=== PATIENT | female | born 1940 | race Caucasian/White ===

== ENCOUNTER 2019-05-07 14:41 | Inpatient (IN) | payer MEDICARE, BC ==
[~2019-05-07] VITALS: Ht 170.2 cm; Wt 54.9 kg
[2019-05-07] MEDS ORDERED: LOPE2CAP PO (15:34)
[2019-05-07] MEDS ORDERED: ALBU6.7H IH (15:34)
[2019-05-07] MEDS ORDERED: GLUC100017 PO (15:34)
[2019-05-07] MEDS ORDERED: MEMA28CA PO (15:34)
[2019-05-07] MEDS ORDERED: ASPI-605 PO (15:34)
[2019-05-07] MEDS ORDERED: LORA0.5T PO (15:34)
[2019-05-07] MEDS ORDERED: DIPH50CA4 PO (15:34)
[2019-05-07] MEDS ORDERED: KETO5DRO72 OP (15:34)
[2019-05-07] MEDS ORDERED: HYDR200T81 PO (15:34)
[2019-05-07] MEDS ORDERED: SUVO10TA PO (15:34)
[2019-05-07] MEDS ORDERED: SERT100T PO (15:34)
[2019-05-07] MEDS ORDERED: PRED2.5T PO (15:34)
[2019-05-07] MEDS ORDERED: BUSP5TAB3 PO (15:34)
[2019-05-07 15:52] VITALS: BP 142/83
[2019-05-07 15:54] VITALS: BP 142/83
[2019-05-07 16:00] VITALS: BP 111/58
[2019-05-07] MEDS ORDERED: BLOOD SUGAR DIAGNOSTIC 1 EACH STRIP IN ONE ×2 (16:00)
[2019-05-07] MEDS ORDERED: MAGNESIUM HYDROXIDE 30 ML UDC PO PRN ×2 (16:00)
[2019-05-07] MEDS ORDERED: MAG HYDROX/AL HYDROX/SIMETH 30 ML UDC PO PRN ×2 (16:00)
[2019-05-07] MEDS ORDERED: ACETAMINOPHEN 325 MG TABLET PO PRN (16:00)
[2019-05-07] MEDS ORDERED: OLANZAPINE 10 MG VIAL IM STA (16:05)
[2019-05-07] MEDS ORDERED: LORAZEPAM INJ 2 MG/ML VIAL IM STA (16:07)
--- NOTE | 2019-05-07 17:58 | NUR ---
pt placed on 5150 for dts, dto, gd. pt under the care of dr. ashby and [place]. pt is alert oriented x 1. pt arrived restless, anxious, uncooperative, aggressive, hostile. pt unable to follow direction. poor historian. mrsa swab done and sent to lab. pt refuse skin assessment. medication reconciliation completed. psych aware. dependency case manager paged. waiting for call back. admission completed. pt going to room 213A.
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
[2019-05-07] MEDS ORDERED: HOME MED MISCELLANEOUS XX SCH (20:30)
[2019-05-07] MEDS ORDERED: LOPERAMIDE HCL (2 MG CAP) 2 MG CAPSULE PO PRN (20:30)
[2019-05-07] MEDS ORDERED: ALBUTEROL FS 2.5 MG/3 ML VIAL.NEB NEB PRN (20:30)
[2019-05-07] MEDS ORDERED: diphenhydrAMINE HCL 50 MG CAPSULE PO PRN (20:30)
[2019-05-08 07:24] LABS: CHOLESTEROL 207 mg/dL (<200); HDL CHOLESTEROL 66 mg/dL (40-60); LDL 117 mg/dL (0-99); TRIGLYCERIDES 113 mg/dL (30-150)
[2019-05-08 07:29] LABS: BILIRUBIN,TOTAL 0.9 mg/dL (0.2-1.0); CALCIUM, SERUM 8.8 mg/dL (8.5-10.1); CREATININE 0.7 mg/dL (0.6-1.3); POTASSIUM 3.5 mmol/L (3.5-5.1); TOTAL PROTEIN, SERUM 5.8 g/dL (6.4-8.2)
[2019-05-08 08:00] VITALS: BP 135/64
[2019-05-08] MEDS: predniSONE 5 MG TABLET PO SCH (08:57)
[2019-05-08] MEDS: MEMANTINE HCL 5 MG TABLET PO SCH ×2 (08:57→16:15)
[2019-05-08] MEDS: ASPIRIN EC 81 MG TABLET.DR PO SCH (08:57)
--- NOTE | 2019-05-08 08:57 | NUR ---
RN NOTE: PATIENT REFUSED ALL 0900 MEDICATIONS x3 RISK AND BENEFITS EXPLAINED. PATIENT STATES "I DON'T NEED THEM, YOU TAKE THEM".
[2019-05-08] MEDS ORDERED: QUETIAPINE FUMARATE 25 MG TABLET PO PRN (11:00)
[2019-05-08] MEDS: busPIRone 5 MG TABLET PO SCH ×2 (12:15→16:15)
[2019-05-08] MEDS ORDERED: SERTRALINE HCL 50 MG TABLET PO SCH (13:00)
--- NOTE | 2019-05-08 14:50 | NUR ---
Group Note: SW encouraged pt to participate in group on 05/08/19 at 2pm discussing social supports. Pt is oriented x1 and is noncompliant with care. Pt has been attempting to elope from the unit and appears to be agitated. Pt does not appear to be appropriate for group and is unable to engage in a conversation.
[2019-05-08 16:00] VITALS: BP 125/63
[2019-05-08] MEDS: HYDROXYCHLOROQUINE 200 MG TABLET PO SCH (18:53)
[2019-05-08] MEDS: ACETAMINOPHEN 325 MG TABLET PO PRN (19:25)
[2019-05-08] MEDS ORDERED: QUETIAPINE FUMARATE 25 MG TABLET PO SCH (20:00)
[2019-05-08 20:08] VITALS: BP_SYST 105; BP_SYST 87; BP_DIAS 48; BP_DIAS 65
[2019-05-08 20:15] VITALS: BP 105/65
[2019-05-09] MEDS: clonazePAM 0.5 MG TABLET PO PRN (06:04)
--- NOTE | 2019-05-09 06:04 | NUR ---
GPS-RN PATIENT REFUSED PRN KLONOPIN MEDICATION, OFFERED X3, EDUCATED PATIENT ON RISK VS BENEFIT. PATIENT CONTINUES TO REFUSE. WILL CONTINUE TO MONITOR.
[2019-05-09 08:00] VITALS: BP 128/88
[2019-05-09] MEDS: predniSONE 5 MG TABLET PO SCH (09:00)
[2019-05-09] MEDS: QUETIAPINE FUMARATE 25 MG TABLET PO SCH ×3 (09:00→18:37)
[2019-05-09] MEDS: DIVALPROEX SODIUM 125 MG CAP.SPRINK PO SCH ×2 (09:00→12:00)
[2019-05-09] MEDS: ASPIRIN EC 81 MG TABLET.DR PO SCH (09:00)
[2019-05-09] MEDS: MEMANTINE HCL 5 MG TABLET PO SCH ×2 (09:00→18:37)
--- NOTE | 2019-05-09 09:01 | NUR ---
Initial Discharge Plan: Pt currently resides at [facility] located at [address] [place] [address]; ([phone]). Per pts Duyen pedraza ([phone]), she would like the pt to return to the facility. SW will inquire whether or not the facility will accept the pt back. SW will work with the MD and the pt regarding appropriate discharge planning. SW will form a safe and proper discharge.
--- NOTE | 2019-05-09 09:01 | NUR ---
Family Contact: SW called the pts daughter, Duyen ([phone]), and received collateral information regarding the pts assessment as the pt is oriented x1. SW also discussed the pts initial treatment and discharge plan.
--- NOTE | 2019-05-09 09:35 | NUR ---
RN NOTE: PATIENT REFUSED 0900 ROUTINE MEDICATIONS x3. RISK AND BENEFITS EXPLAINED. PATIENT STATES "NO MEDICINE!" AND STARTED STRIKING OUT AND HITTING NURSING STAFF. OFFERED PRN MEDICATION AND PATIENT REFUSED.
--- NOTE | 2019-05-09 15:58 | NUR ---
Family Contact: SW met with the pts daughter, Duyen ([phone]), and discussed the pts discharge plan. NANCY stated that the plan is to discharge the pt to a senior living and that from there if the pt is considered stable then the discharge plan will be adjusted.
[2019-05-09] MEDS: HYDROXYCHLOROQUINE 200 MG TABLET PO SCH (18:37)
[2019-05-09] MEDS: DIVALPROEX SODIUM 250 MG TABLET.DR PO SCH (18:37)
[2019-05-09 20:00] VITALS: BP 123/73
[2019-05-10 08:00] VITALS: BP 128/77
[2019-05-10] MEDS: ASPIRIN EC 81 MG TABLET.DR PO SCH (08:58)
[2019-05-10] MEDS: DIVALPROEX SODIUM 250 MG TABLET.DR PO SCH ×3 (08:58→17:48)
[2019-05-10] MEDS: predniSONE 5 MG TABLET PO SCH (08:59)
[2019-05-10] MEDS: MEMANTINE HCL 5 MG TABLET PO SCH ×2 (08:59→17:48)
[2019-05-10] MEDS: QUETIAPINE FUMARATE 25 MG TABLET PO SCH ×2 (09:05→12:52)
--- NOTE | 2019-05-10 09:16 | NUR ---
Friend Contact: NANCY called the pts friend, Cecilia Jimenez ([phone]), who stated that her is the pts trustee and she had requested a call from the SW. NANCY was unable to make contact and left a voicemail stating that she would like a call back.
--- NOTE | 2019-05-10 09:17 | NUR ---
Facility Contact: NANCY called [facility] ([phone]) and left a voicemail for Elsie stating that the NANCY would like to know if the pt can return to the facility or not.
--- NOTE | 2019-05-10 09:28 | NUR ---
PC Hearing Notification: SW called the pts daughter, Duyen ([phone]), and informed her that the pt will be having a Probable Cause hearing today. Pts daughter stated that she would like to have the opportunity to be present and asked the SW to call her once the court arrives. SW stated that she would.
[2019-05-10] MEDS: AZATHIOPRINE 50 MG TABLET PO SCH (10:45)
--- NOTE | 2019-05-10 11:17 | NUR ---
GPS RN NOTE PATIENT AGITATED AND THROWING WATER AT NURSING STUDENTS AND STAFF. PATIENT YELLING, CHARGE NURSE TIFFANY SPOKEN WITH DR. CANALES ORDERS FOR ZYPREXA IM ONE TIME. ZYPREZA IM GIVEN ONE TIME AT 1117. WILL CONTINUE TO MONITOR.
[2019-05-10] MEDS ORDERED: OLANZAPINE 10 MG VIAL IM ONE (11:30)
--- NOTE | 2019-05-10 11:30 | NUR ---
Facility Contact: [place] [facility] [phone][place] called the SW and stated that the pt cannot return to the facility due to the pts behavior. SW stated that after speaking to the pts daughter, a SNF placement was discussed to be more appropriate for the pt and the [place] agreed. Shahrzad stated that she would like to remain updated if possible.
--- NOTE | 2019-05-10 11:44 | NUR ---
PC Hearing Notification: NANCY called the pts daughter, Duyen ([phone]), and informed her that the PC hearing will occur in 30 minutes.
--- NOTE | 2019-05-10 12:50 | NUR ---
GROUP NOTE: SW encouraged pt to attend group discussing "issues with current hospitalization." Pt unable to participate in group due to pts cognitive impairment and only being alert/oriented to self. Pt is otherwise, disorganized, confused, and disoriented. Pt trying to elope and not easily redirected and becomes easily agitated and physically aggressive not appropriate for group at this time.
[2019-05-10] MEDS: OLANZAPINE 5 MG/TAB.RAPDIS PO SCH (17:48)
[2019-05-10] MEDS: HYDROXYCHLOROQUINE 200 MG TABLET PO SCH (17:48)
[2019-05-10] MEDS: ACETAMINOPHEN 325 MG TABLET PO PRN (19:27)
--- NOTE | 2019-05-10 19:27 | NUR ---
c/o headache, Tylenol 650 mg tab po given.
[2019-05-10 20:04] VITALS: BP 106/66
[2019-05-11 08:00] VITALS: BP 105/66
[2019-05-11] MEDS: ASPIRIN EC 81 MG TABLET.DR PO SCH (09:16)
[2019-05-11] MEDS: OLANZAPINE 5 MG/TAB.RAPDIS PO SCH ×2 (09:16→17:19)
[2019-05-11] MEDS: AZATHIOPRINE 50 MG TABLET PO SCH (09:17)
[2019-05-11] MEDS: MEMANTINE HCL 5 MG TABLET PO SCH ×2 (09:17→17:25)
[2019-05-11] MEDS: predniSONE 5 MG TABLET PO SCH (09:17)
[2019-05-11] MEDS: DIVALPROEX SODIUM 250 MG TABLET.DR PO SCH ×3 (09:17→17:19)
[2019-05-11 16:00] VITALS: BP 98/66
[2019-05-11] MEDS: HYDROXYCHLOROQUINE 200 MG TABLET PO SCH (17:28)
[2019-05-11 20:09] VITALS: BP 116/89
[2019-05-11] MEDS: clonazePAM 0.5 MG TABLET PO PRN (20:20)
--- NOTE | 2019-05-11 20:20 | NUR ---
RN NOTES PATIENT IS ANXIOUS AND COMBATIVE TO STAFF MEMBERS. KLONOPIN 0.5 MG GIVEN ORDERED
[2019-05-11] MEDS: TEMAZEPAM 15 MG CAPSULE PO PRN (21:33)
[2019-05-12] MEDS: AZATHIOPRINE 50 MG TABLET PO SCH (09:00)
[2019-05-12] MEDS: OLANZAPINE 5 MG/TAB.RAPDIS PO SCH ×2 (09:01→16:24)
[2019-05-12] MEDS: MEMANTINE HCL 5 MG TABLET PO SCH ×2 (09:01→16:24)
[2019-05-12] MEDS: predniSONE 5 MG TABLET PO SCH (09:01)
[2019-05-12] MEDS: ASPIRIN EC 81 MG TABLET.DR PO SCH (09:01)
[2019-05-12] MEDS: DIVALPROEX SODIUM 250 MG TABLET.DR PO SCH ×3 (09:01→16:23)
[2019-05-12 09:09] VITALS: BP 125/87
[2019-05-12 16:00] VITALS: BP 156/76
[2019-05-12] MEDS: HYDROXYCHLOROQUINE 200 MG TABLET PO SCH (16:24)
[2019-05-12 19:56] VITALS: BP 101/70
[2019-05-12 19:59] VITALS: BP 101/70
--- NOTE | 2019-05-12 20:30 | NUR ---
rn notes: PT IN BED, AWAKE, A/O X1, CONFUSED, HAS DEMENTIA, DAUGHTER AT BED SIDE, PER REPORT PT SEEN WANDERING ROOM TO ROOM. STEADY GAIT, CONTINENT. PER REPORT FROM DAY RN PT ONLY TAKE MEDS WITH DAUGHTER'S CONSENT, IN PERSON OR VIA PHONE. DENIES ANY SI/HI AT THIS TIME. SAFETY PRECAUTIONS FOR FALL INITIATED, SIDE RAILS UP X2 FOR SAFETY, WILL CONTINUE MONITORING PT [id number] FOR SAFETY AND ANY CHANGES IN BEHAVIOR.
[2019-05-12] MEDS: TEMAZEPAM 15 MG CAPSULE PO PRN (21:31)
--- NOTE | 2019-05-12 21:31 | NUR ---
PRN RESTORIL: OFFERED TO PT SLEEPING PILL, PT STATED SHE WOULD LIKE TO HAVE A GOOD NIGHT SLEEP. PRN RESTORIL ADMINISTERED AT THIS TIME. REST AND RELAXATION INCLUDING A GOOD AMOUNT OF SLEEP HELPS IMPROVE PT'S WAY OF THINKING, JUDGMENT AND COORDINATION ESPECIALLY IN PT'S CASE (HAS DEMENTIA).
[2019-05-13 08:00] VITALS: BP 115/70
[2019-05-13] MEDS: OLANZAPINE 5 MG/TAB.RAPDIS PO SCH ×3 (08:31→20:02)
[2019-05-13] MEDS: DIVALPROEX SODIUM 250 MG TABLET.DR PO SCH ×3 (08:31→16:08)
[2019-05-13] MEDS: MEMANTINE HCL 5 MG TABLET PO SCH ×2 (08:31→16:08)
[2019-05-13] MEDS: ASPIRIN EC 81 MG TABLET.DR PO SCH (08:31)
[2019-05-13] MEDS: AZATHIOPRINE 50 MG TABLET PO SCH (08:32)
[2019-05-13] MEDS: predniSONE 5 MG TABLET PO SCH (08:32)
--- NOTE | 2019-05-13 11:53 | NUR ---
SNF Referral: NANCY faxed a referral to [facility] with attention to Anaid to the fax number: [phone].
--- NOTE | 2019-05-13 13:24 | NUR ---
RN NOTE: WAS INFORMED THAT PATIENT WAS FOUND LYING ON THE FLOOR IN ROOM 212. ASSESSED PATIENT THEN PLACED HER IN BED. PATIENT IS C/O PAIN 6/10 TO THE RIGHT HIP. NEURO CHECK DONE. NO BUMPS NOTED ON HER HEAD. PATIENT ABLE TO MOVE HER RLE, PEDAL PULSE PRESENT. PATIENT IS ALERT X1, CONFUSED AND CAN'T STATE HOW SHE WAS PLACED ON THE FLOOR. SKIN CHECK DONE. REDNESS WAS NOTED. PHOTO TAKEN AND PLACED IN CHART. CONTACTED MOY, DAUGHTER TO INFORM HER OF INCIDENT. INFORMED CHARGE NURSE, SNACK BAR COOK, PRIVACY MANAGER AND MD WITH ORDERS FOR CT OF HEAD W/O CONTRAST AND X-RAY TO THE RIGHT HIP.
--- NOTE | 2019-05-13 13:32 | NUR ---
SNF Contact: Barbie ([phone]) from [facility] called the SW and stated that the pt was accepted to their facility.
--- NOTE | 2019-05-13 13:33 | NUR ---
Family Contact: SW called the pts daughter, Duyen ([phone]), and left a voicemail for the pt stating that the pt was accepted to [facility].
[2019-05-13 14:12] LABS: BASOPHILS % (AUTO) 0.2 % (0.0-2.0); EOSINOPHILS % (AUTO) 1.6 % (0.0-6.0); HEMATOCRIT 38 % (33-45); HEMOGLOBIN 12.8 g/dL (11.5-14.8); LYMPHOCYTES # (AUTO) 0.3 /CMM (0.8-4.8); LYMPHOCYTES % (AUTO) 5.8 % (20.0-44.0); MEAN CORPUSCULAR HGB CONC 33 g/dl (31.0-36.0); MEAN CORPUSCULAR VOLUME 105 fL (82-100); MONOCYTES # (AUTO) 0.3 /CMM (0.1-1.30); MONOCYTES % (AUTO) 7.3 % (2.0-12.0); NEUTROPHILS # (AUTO) 3.8 /CMM (1.8-8.9); NEUTROPHILS % (AUTO) 85.1 % (43.0-81.0); PLATELET COUNT (AUTO) 199 /CMM (150-450); RED BLOOD CELL COUNT(AUTO) 3.66 MIL/uL (4.0-5.2); WHITE BLOOD COUNT (AUTO) 4.5 K/uL (4.3-11.0)
[2019-05-13 14:34] LABS: ALBUMIN 2.7 g/dL (3.4-5.0); BILIRUBIN,TOTAL 0.8 mg/dL (0.2-1.0); CALCIUM, SERUM 8.6 mg/dL (8.5-10.1); CREATININE 0.7 mg/dL (0.6-1.3); POTASSIUM 3.7 mmol/L (3.5-5.1); TOTAL PROTEIN, SERUM 5.5 g/dL (6.4-8.2)
[2019-05-13 16:00] VITALS: BP 114/55
[2019-05-13] MEDS: HYDROXYCHLOROQUINE 200 MG TABLET PO SCH (18:43)
[2019-05-13 19:45] VITALS: BP 108/62
[2019-05-13] MEDS: ACETAMINOPHEN 325 MG TABLET PO PRN (20:03)
--- NOTE | 2019-05-13 20:06 | NUR ---
RN NOTES: DTR SITTING WITH PT AT BEDSIDE. PT IS COMPLAINING OF BACK PAIN. PT WAS ADMINISTERED TYLENOL 650MG PO. WILL CONTINUE TO MONITOR.
[2019-05-14 06:52] LABS: BASOPHILS % (AUTO) 0.8 % (0.0-2.0); EOSINOPHILS % (AUTO) 2.7 % (0.0-6.0); HEMATOCRIT 41 % (33-45); LYMPHOCYTES # (AUTO) 0.7 /CMM (0.8-4.8); LYMPHOCYTES % (AUTO) 17.5 % (20.0-44.0); MEAN CORPUSCULAR HGB CONC 34 g/dl (31.0-36.0); MEAN CORPUSCULAR VOLUME 105 fL (82-100); MONOCYTES # (AUTO) 0.3 /CMM (0.1-1.30); MONOCYTES % (AUTO) 8.8 % (2.0-12.0); NEUTROPHILS # (AUTO) 2.7 /CMM (1.8-8.9); NEUTROPHILS % (AUTO) 70.2 % (43.0-81.0); PLATELET COUNT (AUTO) 220 /CMM (150-450); RED BLOOD CELL COUNT(AUTO) 3.92 MIL/uL (4.0-5.2); WHITE BLOOD COUNT (AUTO) 3.9 K/uL (4.3-11.0)
[2019-05-14 07:12] LABS: ALBUMIN 2.9 g/dL (3.4-5.0); BILIRUBIN,TOTAL 0.8 mg/dL (0.2-1.0); CALCIUM, SERUM 8.9 mg/dL (8.5-10.1); CREATININE 0.8 mg/dL (0.6-1.3); POTASSIUM 3.6 mmol/L (3.5-5.1); TOTAL PROTEIN, SERUM 5.9 g/dL (6.4-8.2)
[2019-05-14 08:00] VITALS: BP 151/65
[2019-05-14] MEDS: MEMANTINE HCL 5 MG TABLET PO SCH ×2 (09:10→16:47)
[2019-05-14] MEDS: OLANZAPINE 2.5 MG TABLET PO SCH ×2 (09:10→13:00)
[2019-05-14] MEDS: predniSONE 5 MG TABLET PO SCH (09:10)
[2019-05-14] MEDS: ASPIRIN EC 81 MG TABLET.DR PO SCH (09:10)
[2019-05-14] MEDS: DIVALPROEX SODIUM 250 MG TABLET.DR PO SCH ×3 (09:10→16:47)
[2019-05-14] MEDS: AZATHIOPRINE 50 MG TABLET PO SCH (09:13)
--- NOTE | 2019-05-14 09:54 | NUR ---
Family Contact: SW called the pts daughter, Duyen ([phone]), and discussed the pts placement. Pts daughter stated that she does not feel like the pt is ready to be moved to a fdc due to her fall and the SW explained that is not a criteria for inpatient psych hospitalization. SW explained that the pt will be discharged to a fdc with nursing support and internists that will be available. Pts daughter stated that she will seek other facilities and the SW stated to keep in mind that the pt is a psych pt.
--- NOTE | 2019-05-14 11:10 | NUR ---
SNF Referral: NANCY faxed a referral to [facility] with attention to Claudine to the fax number: [phone].
--- NOTE | 2019-05-14 13:16 | NUR ---
RN NOTE: PATIENT REFUSED 1300 MEDS
--- NOTE | 2019-05-14 14:26 | NUR ---
Family Contact: Pts daughter, Duyen ([phone]), called the SW and stated that she went through the list of facilities that the SW provided her with and asked the SW to send a referral to [facility].
--- NOTE | 2019-05-14 14:27 | NUR ---
Friend Contact: NANCY called the pts friend, Cecilia Jimenez ([phone]), to return her voicemail. She stated that she does not believe that the pt is ready to be moved from the hospital because she fell the previous day. NANCY stated that this is a psychiatric inpatient unit and once a pt no longer meets the acute criteria we look into discharging the pt. NANCY stated that as the pts trustee she does not have the right to decide on placement as that is the pts daughters role at this time. She stated that she wants to go through her company and make sure that the pt will be going to a licensed facility. NANCY informed her that the SW will be working with the pts daughter in terms of discharge planning.
--- NOTE | 2019-05-14 14:30 | NUR ---
SNF Referral: NANCY chavez a referral to [facility] with attention to Claudine to the fax number: [phone]. Addendum: 05/15/19 at 0850 by NATE CRUZ Faxed updated notes
--- NOTE | 2019-05-14 15:47 | NUR ---
Group Note: SW encouraged pt to participate in group on 05/14/19 at 1pm discussing discharge planning. Pt is oriented x1 and is noncompliant with care. Pt has been attempting to elope from the unit and appears to be agitated. Pt does not appear to be appropriate for group and is unable to engage in a conversation.
[2019-05-14 15:53] VITALS: BP 122/91
[2019-05-14] MEDS: HYDROXYCHLOROQUINE 200 MG TABLET PO SCH (16:47)
[2019-05-14] MEDS: ENSURE ENLIVE 237 ML LIQUID (VANILLA) PO SCH ×2 (16:49→17:45)
--- NOTE | 2019-05-14 19:15 | NUR ---
RN NOTE RECEIVED PT IN STABLE CONDITION A/O X1 CURRENTLY NOTED IN BED. NO S/S OF DISTRESS, NO C/O PAIN OR N/V. NO SIGNS OF SI OR HI. ALL CURRENT NEEDS ATTENDED TO. WILL CONT. TO MONITOR PT'S BEHAVIOR CLOSELY. SAFETY PRECAUTIONS IN PLACE.
[2019-05-14 20:04] VITALS: BP 126/85
[2019-05-14] MEDS: OLANZAPINE 5 MG/TAB.RAPDIS PO SCH (20:24)
[2019-05-14 20:44] VITALS: BP 126/85
[2019-05-15 08:00] VITALS: BP 122/76
[2019-05-15] MEDS: DIVALPROEX SODIUM 250 MG TABLET.DR PO SCH ×3 (08:55→16:40)
[2019-05-15] MEDS: predniSONE 5 MG TABLET PO SCH (08:55)
[2019-05-15] MEDS: OLANZAPINE 2.5 MG TABLET PO SCH ×2 (08:55→13:26)
[2019-05-15] MEDS: ASPIRIN EC 81 MG TABLET.DR PO SCH (08:55)
[2019-05-15] MEDS: ENSURE ENLIVE 237 ML LIQUID (VANILLA) PO SCH ×3 (08:56→17:45)
[2019-05-15] MEDS: MEMANTINE HCL 5 MG TABLET PO SCH ×2 (08:56→16:40)
[2019-05-15] MEDS: AZATHIOPRINE 50 MG TABLET PO SCH (09:08)
--- NOTE | 2019-05-15 11:32 | NUR ---
SNF Contact: Claudine ([phone]) from [facility] contacted the SW and stated that the pt was accepted to their facility.
--- NOTE | 2019-05-15 11:37 | NUR ---
Family Contact: SW called the pts daughter, Duyen ([phone]), and left a voicemail stating that the pt was accepted to [facility] and to contact the SW with any questions.
[2019-05-15] MEDS: ACETAMINOPHEN 325 MG TABLET PO PRN (13:31)
--- NOTE | 2019-05-15 14:47 | NUR ---
Patient says pain is 4/10 in back. Given as needed tylenol prior when complaint of pain was 3/10. Lm Ambrocio RN
[2019-05-15 16:00] VITALS: BP 97/74
[2019-05-15] MEDS: HYDROXYCHLOROQUINE 200 MG TABLET PO SCH (16:41)
--- NOTE | 2019-05-15 17:51 | NUR ---
Patient is pleasantly visiting with her group and eating dinner with them. Lm Ambrocio RN
--- NOTE | 2019-05-15 19:25 | NUR ---
GPS OPENING NOTE. REPORT RECIEVED FROM EVY WALTON. PATIENT AWAKE IN BED VISITING WITH DAUGHTER OSCAR WHOM IS AVAILABLE IF NEEDED. [phone]. PT DENIES PAIN AT THIS TIME. NO S/S OF APPARENT DISTRESS. BREATHING EVEN AND UNLABERED ON RA. PATIENT IS MED COMPLIANT, DISORGANIZED CONFUSED AND NEEDS CONSTANT REORIENTATION. PATIENT BEING REORIENTED AND TAKES DIRECTION FROM DAGER. DENIES SI AND HI AT THIS TIME. SR UP X2 BED LOCKED AND LOW WILL CONT TO MONITOR AND MAINTAIN SAFETY.
[2019-05-15 20:04] VITALS: BP 120/85
[2019-05-15] MEDS: OLANZAPINE 5 MG/TAB.RAPDIS PO SCH (21:11)
[2019-05-16 08:00] VITALS: BP 134/87
[2019-05-16] MEDS: DIVALPROEX SODIUM 250 MG TABLET.DR PO SCH ×3 (08:51→16:26)
[2019-05-16] MEDS: ASPIRIN EC 81 MG TABLET.DR PO SCH (08:51)
[2019-05-16] MEDS: OLANZAPINE 2.5 MG TABLET PO SCH ×2 (08:51→12:40)
[2019-05-16] MEDS: ACETAMINOPHEN 325 MG TABLET PO PRN (08:51)
[2019-05-16] MEDS: predniSONE 5 MG TABLET PO SCH (08:52)
[2019-05-16] MEDS: ENSURE ENLIVE 237 ML LIQUID (VANILLA) PO SCH ×3 (08:52→16:26)
[2019-05-16] MEDS: AZATHIOPRINE 50 MG TABLET PO SCH (09:01)
[2019-05-16] MEDS: MEMANTINE HCL 5 MG TABLET PO SCH ×2 (09:17→16:25)
--- NOTE | 2019-05-16 11:56 | NUR ---
Daughter of patient needs to talk with Doctor MD Ronna, prior to placing patient. She said she was on her way to work now. Says she might lose her job. Was not able to provide prescription bottle of norco at this time. Will continue to monitor and endorse to next nurse as needed.
[2019-05-16 16:00] VITALS: BP 142/74
[2019-05-16] MEDS: HYDROXYCHLOROQUINE 200 MG TABLET PO SCH (16:26)
[2019-05-16 20:00] VITALS: BP 143/88
[2019-05-16 20:24] VITALS: BP 142/74
[2019-05-16 20:25] VITALS: BP 148/88
--- NOTE | 2019-05-16 20:30 | NUR ---
GPS RN NOTE DTR OF PATIENT ARRIVED TO VISIT. DTR CONCERNED THAT PATIENT'S PAIN NEEDS NOT BEING MET. EXPLAINED TO FAMILY MD WILL PRESCRIBE PAIN MEDS AT THEIR DISCRETION. DTR THEN WENT ON PHONE TO CALL PHARMACY ASKING TO MARINE ENGINEERING PROFESSOR THE PRESCRIPTION. DTR ALSO EXPRESSES CONCERN OVER WHERE HER MOTHER IS BEING DC'D. DTR STATES THAT THE SW AND MD'S ARE NOT FORTH COMING WITH INFORMATION. TRIMMING ASSEMBLER CHRISTAL AWARE AND ADDRESSED PATIENT CONCERNS.
[2019-05-16] MEDS: OLANZAPINE 5 MG/TAB.RAPDIS PO SCH (20:31)
[2019-05-17] MEDS: TEMAZEPAM 15 MG CAPSULE PO PRN ×2 (02:25→20:59)
[2019-05-17 08:00] VITALS: BP 97/58
[2019-05-17] MEDS: ASPIRIN EC 81 MG TABLET.DR PO SCH (08:39)
[2019-05-17] MEDS: OLANZAPINE 2.5 MG TABLET PO SCH ×2 (08:39→12:14)
[2019-05-17] MEDS: predniSONE 5 MG TABLET PO SCH (08:39)
[2019-05-17] MEDS: DIVALPROEX SODIUM 250 MG TABLET.DR PO SCH ×3 (08:39→16:17)
[2019-05-17] MEDS: MEMANTINE HCL 5 MG TABLET PO SCH ×2 (08:41→16:17)
[2019-05-17] MEDS: AZATHIOPRINE 50 MG TABLET PO SCH (08:41)
[2019-05-17] MEDS: ENSURE ENLIVE 237 ML LIQUID (VANILLA) PO SCH ×3 (08:43→16:17)
--- NOTE | 2019-05-17 15:18 | NUR ---
Family Contact: SW called the pts daughter, Duyen ([phone]), and informed her that the pt will be discharged on Monday to [facility]. SW attempted to explain the reasoning behind the custodial placement and the pts daughter stated that she wanted a call from a doctor regarding her fall. SW explained that she can pass along that message and that she can receive the records once she is discharged from Medical Records.
[2019-05-17 16:00] VITALS: BP 102/75
[2019-05-17] MEDS ORDERED: HYDROCODONE/APAP 10/325MG 1 EA TABLET PO PRN (16:00)
[2019-05-17] MEDS: HYDROXYCHLOROQUINE 200 MG TABLET PO SCH (18:41)
[2019-05-17 20:10] VITALS: BP 123/72
[2019-05-17] MEDS: OLANZAPINE 5 MG/TAB.RAPDIS PO SCH (20:59)
--- NOTE | 2019-05-18 07:30 | NUR ---
OPENING PATIENT RESTING IN BED. PT DENIES PAIN AT THIS TIME. NO S/S OF APPARENT DISTRESS. BREATHING EVEN AND NON-LABORED ON RA. PATIENT IS MED COMPLIANT, DISORGANIZED CONFUSED AND NEEDS CONSTANT REORIENTATION. PATIENT BEING REORIENTED AND TAKES DIRECTION FROM DAUGHTER. DENIES SI AND HI AT THIS TIME. SR UP X2 BED LOCKED AND LOW WILL CONT TO MONITOR AND MAINTAIN SAFETY.
[2019-05-18 08:00] VITALS: BP 125/72
[2019-05-18] MEDS: ENSURE ENLIVE 237 ML LIQUID (VANILLA) PO SCH ×3 (08:43→16:24)
[2019-05-18] MEDS: DIVALPROEX SODIUM 250 MG TABLET.DR PO SCH ×3 (08:43→16:45)
[2019-05-18] MEDS: predniSONE 5 MG TABLET PO SCH (08:43)
[2019-05-18] MEDS: MEMANTINE HCL 5 MG TABLET PO SCH ×2 (08:43→16:45)
[2019-05-18] MEDS: OLANZAPINE 2.5 MG TABLET PO SCH ×2 (08:43→13:01)
[2019-05-18] MEDS: AZATHIOPRINE 50 MG TABLET PO SCH (08:43)
[2019-05-18] MEDS: ASPIRIN EC 81 MG TABLET.DR PO SCH (08:43)
[2019-05-18 16:00] VITALS: BP 105/74
[2019-05-18] MEDS: HYDROXYCHLOROQUINE 200 MG TABLET PO SCH (16:46)
--- NOTE | 2019-05-18 17:04 | NUR ---
CLOSING PT COOPERATIVE ALL SHIFT COMPLIANT WITH MEDICATIONS FAMILY VISITED PT TODAY. PT TENDS TO [place] AND FORGETS HER ROOM NUMBER BUT EASILY REDIRECTED. PT KEPT SAFE ALL MEDICATIONS GIVEN WILL ENDORSE CARE TO PM RN FOR CONTINUITY OF CARE
[2019-05-18 17:35] VITALS: BP 105/74
[2019-05-18 20:23] VITALS: BP 122/80
[2019-05-18] MEDS: OLANZAPINE 5 MG/TAB.RAPDIS PO SCH (20:26)
[2019-05-18] MEDS: TEMAZEPAM 15 MG CAPSULE PO PRN (21:20)
--- NOTE | 2019-05-18 21:27 | NUR ---
GPS RN NOTES: PATIENT UNABLE TO GO TO SLEEP. PATIENT STATED, " I CANT SLEEP." ADMINISTER RESTORIL 15 MG PO @ 2119. PATIENT TOLERATED MEDICATION WELL. CONTINUE TO MONITOR.
[2019-05-19] MEDS: OLANZAPINE 2.5 MG TABLET PO SCH ×2 (07:59→12:06)
[2019-05-19 08:00] VITALS: BP 110/86
[2019-05-19] MEDS: MEMANTINE HCL 5 MG TABLET PO SCH ×2 (08:00→16:02)
[2019-05-19] MEDS: predniSONE 5 MG TABLET PO SCH (08:00)
[2019-05-19] MEDS: ASPIRIN EC 81 MG TABLET.DR PO SCH (08:00)
[2019-05-19] MEDS: AZATHIOPRINE 50 MG TABLET PO SCH (08:00)
[2019-05-19] MEDS: DIVALPROEX SODIUM 250 MG TABLET.DR PO SCH ×3 (08:00→16:03)
[2019-05-19] MEDS: ENSURE ENLIVE 237 ML LIQUID (VANILLA) PO SCH ×3 (08:03→16:03)
[2019-05-19 16:00] VITALS: BP 115/73
[2019-05-19] MEDS: HYDROXYCHLOROQUINE 200 MG TABLET PO SCH (18:02)
[2019-05-19] MEDS: OLANZAPINE 5 MG/TAB.RAPDIS PO SCH (20:34)
[2019-05-19] MEDS: TEMAZEPAM 15 MG CAPSULE PO PRN (20:35)
[2019-05-20 08:00] VITALS: BP 137/82
[2019-05-20 08:04] LABS: CALCIUM, SERUM 8.9 mg/dL (8.5-10.1); CREATININE 0.6 mg/dL (0.6-1.3); POTASSIUM 3.9 mmol/L (3.5-5.1)
[2019-05-20] MEDS: AZATHIOPRINE 50 MG TABLET PO SCH (08:39)
[2019-05-20] MEDS: DIVALPROEX SODIUM 250 MG TABLET.DR PO SCH ×3 (08:40→16:22)
[2019-05-20] MEDS: ASPIRIN EC 81 MG TABLET.DR PO SCH (08:40)
[2019-05-20] MEDS: ENSURE ENLIVE 237 ML LIQUID (VANILLA) PO SCH ×3 (08:40→16:23)
[2019-05-20] MEDS: OLANZAPINE 2.5 MG TABLET PO SCH ×2 (08:40→12:14)
[2019-05-20] MEDS: MEMANTINE HCL 5 MG TABLET PO SCH ×2 (08:40→16:22)
[2019-05-20] MEDS: predniSONE 5 MG TABLET PO SCH (08:40)
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
--- NOTE | 2019-05-20 15:41 | NUR ---
Discharge Note: Pt was discharged to [facility] ([facility]) located at [address] [place] [address] ([phone]). Pt was transported via [facility] at 6PM. Pts daughter, Duyen ([phone]), was made aware of the discharge. Upon discharge, the pt appeared to be in a euthymic mood and presented with a calm affect. Pt denied both suicidal and homicidal ideation as well as auditory and visual hallucinations. Pt will continue to be under the care of her psychiatrist, Dr. Friend, located at [address] [address], [place] [address]; and transportation coordinator, Dr. Mercer, located at [address] [facility] [address] [address]; .
[2019-05-20 16:00] VITALS: BP 100/66
[2019-05-20] MEDS: HYDROXYCHLOROQUINE 200 MG TABLET PO SCH (17:32)
== END 2019-05-20 18:35 | DRG 885 ==
LOC: GPS 14:41
PROVIDERS: ADMIT Psychiatry & Neurology Psychosomatic Medicine; ATTEND Internal Medicine
DX: F25.0 Schizoaffective disorder, bipolar type (principal); F01.50 Vascular dementia, unspecified severity, without behavioral disturbance, psychotic disturbance, mood disturbance, and anxiety; G93.41 Metabolic encephalopathy; F23 Brief psychotic disorder; F41.9 Anxiety disorder, unspecified; I10 Essential (primary) hypertension; R79.89 Other specified abnormal findings of blood chemistry; M06.9 Rheumatoid arthritis, unspecified; I25.10 Atherosclerotic heart disease of native coronary artery without angina pectoris; J45.909 Unspecified asthma, uncomplicated
CPT/HCPCS: 36415; 70450-TC; 73502; 80048-TC; 80053-TC; 80061-TC; 80164-TC; 85025-TC; 87081-TC; 97116-TC; 97530-TC; J2060; J3490; J7500; J7512